=== PATIENT | male | born 1960 | race Hispanic/Latino ===

== ENCOUNTER 2017-08-25 07:30 | Day surgery (SDC) | payer BC ==
[2016-11-20 21:05] VITALS: BMI 29.5
[2017-08-25 07:59] LABS: BASO # 0.03 K/mm3 (0.0-2.0); BASO % 0.3 % (0.0-3.0); EOS # 0.1 (0.0-0.7); EOS % 1.2 % (1.5-5.0); GRAN # 6.67 (1.4-6.5); GRAN % 63.9 % (50.0-68.0); HEMATOCRIT 46.8 % (42.0-52.0); LYMPH # 2.6 (1.2-3.4); LYMPH % 25.1 % (22.0-35.0); MEAN CELL VOLUME 95.7 fl (80.0-105.0); MEAN CORPUSCULAR HEMOGLOBIN 33.1 pg (25.0-35.0); MEAN CORPUSCULAR HGB CONC 34.6 g/dl (31.0-37.0); MEAN PLATELET VOLUME 11.3 fl (7.0-11.0); MONO % 9.5 % (1.0-6.0); RED CELL DISTRIBUTION WIDTH 13.2 % (11.5-14.5); WHITE BLOOD COUNT 10.4 10^3/ul (4.5-11.0)
[2017-08-25 08:10] LABS: INR 1.2 (0.93-1.08); PARTIAL THROMBOPLASTIN TIME 31.7 Seconds (25.1-36.5)
[2017-08-25 08:17] LABS: ALB/GLOB RATIO 1.3 (1.1-1.8); ALKALINE PHOSPHATASE 86 U/L (38-126); ALT/SGPT 57 U/L (7-56); AMYLASE 142 U/L (35-125); AST/SGOT 36 U/L (17-59); BILIRUBIN,TOTAL 0.5 mg/dL (0.2-1.3); BLOOD UREA NITROGEN 16 mg/dL (7-21); CALCIUM 9.9 mg/dL (8.4-10.5); CARBON DIOXIDE 25 mmol/L (21-33); CHLORIDE 107 mmol/L (98-107); GFR AFRICAN-AMERICAN > 60; GLUCOSE,RANDOM 114 mg/dL (70-110); LIPASE 914 U/L (23-300); POTASSIUM 4.5 mmol/L (3.6-5.0); SODIUM 144 mmol/L (132-148); TOTAL PROTEIN 8.2 g/dL (5.8-8.3)
[2017-08-25] MEDS ORDERED: cefTRIAXone 1 gm 1 GM/100 ML BAG IVPB SCH (10:00)
[2017-08-25] MEDS ORDERED: Propofol 10 mg/ml Inj (20 ML) ONE ×2 (10:02→10:32)
[2017-08-25] MEDS ORDERED: Midazolam 2 MG/2 ML VIAL ONE (10:03)
[2017-08-25] MEDS ORDERED: cefTRIAXone (Rocephin) 1 gm Inj ONE (10:09)
[2017-08-25] MEDS ORDERED: Sodium Chloride 0.9% 1,000 ML IV SCH (11:15)
[2017-08-25 13:17] VITALS: BP 126/76; PULSE 53; RESP 16; TEMP 98; O2SAT 97
== END 2017-08-25 13:14 | disposition home or self-care (01) ==
LOC: ENDO 07:30
PROVIDERS: ATTEND Internal Medicine
DX: K86.2 Cyst of pancreas (principal); K44.9 Diaphragmatic hernia without obstruction or gangrene; K29.70 Gastritis, unspecified, without bleeding; K29.80 Duodenitis without bleeding; K86.1 Other chronic pancreatitis; J44.9 Chronic obstructive pulmonary disease, unspecified; F41.9 Anxiety disorder, unspecified; E11.9 Type 2 diabetes mellitus without complications; I10 Essential (primary) hypertension; G43.909 Migraine, unspecified, not intractable, without status migrainosus; M19.90 Unspecified osteoarthritis, unspecified site; F17.210 Nicotine dependence, cigarettes, uncomplicated
CPT/HCPCS: 36415; 43239; 43242; 80053; 82150; 82977; 83690; 85025; 85610; 85730; 88173; 88305; 88342; J0696 ×2; J2001; J2250; J2704; J7040 ×2

== ENCOUNTER 2018-06-20 15:07 | Emergency (ER) | payer OTHER ==
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
[2018-06-20 15:32] VITALS: BMI 29.1
[2018-06-20 15:44] VITALS: TEMP 98.7
[2018-06-20 15:59] VITALS: RESP 18
[2018-06-20 16:19] VITALS: BP 166/78; PULSE 76; O2SAT 98
== END 2018-06-20 16:26 | disposition home or self-care (01) ==
LOC: ED 15:07
DX: M54.2 Cervicalgia (principal)